=== PATIENT | female | born 1985 | race African-American/Black ===

== ENCOUNTER 2021-01-23 14:37 | Emergency (ER) | payer MEDICAID, OTHER ==
[~2021-01-23] VITALS: Ht 167.6 cm; Wt 87.0 kg
[~2021-01-23 14:37] MED LIST: PRENATAL VITAMINS
[2021-01-23] MEDS ORDERED: ALBUTEROL (0.083%) 2.5MG/3ML NEB HHN STA (16:32)
[2021-01-23 18:02] LABS: BG BASE EXCESS -2.6 mmol/L (-2.0-2.0); BG CARBOXYHEMOGLOBIN 1.1 % (0.5-1.5); BG DEOXYHEMOGLOBIN 2.8 % (0.0-5.0); BG FRACTION INSPIRED OXYGEN 21; BG HCO3 ACT 21.9 mmol/L (22.0-26.0); BG METHEMOGLOBIN 0.3 % (0.0-1.5); BG OXYGEN SATURATION 97.2 % (92.0-98.5); BG OXYHEMOGLOBIN 95.8 % (94.0-97.0); BG PCO2 37.4 mmHg (35.0-45.0); BG PH 7.385 (7.350-7.450); BG PO2 89.6 mmHg (75.0-100.0); BG SAMPLE SITE RIGHT RADIAL; BG TOTAL HEMOGLOBIN 15.3 g/dL (12.0-18.0); BG TOTAL RESPIRATORY RATE 18 b/min; BG VENT MODE ROOM AIR
[2021-01-23] MEDS ORDERED: IBUP-2029 MT (18:15)
[2021-01-23 18:50] VITALS: BP 124/80
== END 2021-01-23 18:50 | disposition home or self-care (01) ==
LOC: ER 14:37
DX: T59.891A Toxic effect of other specified gases, fumes and vapors, accidental (unintentional), initial encounter (principal); R51.9 Headache, unspecified; J68.0 Bronchitis and pneumonitis due to chemicals, gases, fumes and vapors; Y92.511 Restaurant or cafe as the place of occurrence of the external cause
CPT/HCPCS: 36600; 71045; 81025; 82375; 82805; 94640; 99284; Z7610